=== PATIENT | female | born 1995 | race Caucasian/White ===

== ENCOUNTER 2018-12-31 08:58 | Emergency (ER) | payer OTHER ==
[~2018-12-31] VITALS: Ht 154.9 cm; Wt 67.3 kg
[2018-12-31] MEDS ORDERED: diphenhydrAMINE INJ 50MG/ML VIAL (J1200) IV STA (09:37)
[2018-12-31] MEDS ORDERED: METOCLOPRAMIDE INJ 10MG/2ML VIAL (J2765) IV ONE (09:45)
[2018-12-31] MEDS ORDERED: NS 1,000 ML IV ONE (09:45)
[2018-12-31] MEDS ORDERED: ACETAMINOPHEN 325 MG TAB PO ONE (09:45)
[2018-12-31 11:16] VITALS: BP 117/75
== END 2018-12-31 11:47 | disposition home or self-care (01) ==
LOC: M ED 08:58
DX: O99.89 Other specified diseases and conditions complicating pregnancy, childbirth and the puerperium (principal); G43.909 Migraine, unspecified, not intractable, without status migrainosus; Z79.899 Other long term (current) drug therapy; Z88.0 Allergy status to penicillin
CPT/HCPCS: 96361; 96374; 96375; 99284; J1200; J2765

== ENCOUNTER 2019-01-10 11:18 | Emergency (ER) | payer OTHER ==
[~2019-01-10] VITALS: Ht 154.9 cm; Wt 67.3 kg
[2019-01-10] MEDS ORDERED: FOLI400T PO (11:23)
[2019-01-10] MEDS ORDERED: prenatal (11:23)
--- NOTE | 2019-01-10 13:10 | REP ---
Bilateral lower extremity Duplex Doppler venous ultrasound: Real time compression and duplex Doppler interrogation of the bilateral lower extremity deep venous system is performed. Bilaterally, the common femoral, superficial femoral and popliteal veins are fully compressible with transducer pressure and demonstrate normal spontaneous and phasic flow, without evidence of deep venous thrombosis. Impression: No evidence of deep venous thrombosis of the bilateral lower extremity femoral popliteal venous system. Electronically Signed by Yoandy Oliveros MD 01/10/2019 01:02 P
[2019-01-10 14:26] VITALS: BP 127/79
--- NOTE | 2019-01-10 14:31 | REP ---
CHEST, SINGLE VIEW: There is no evidence of acute infiltrate. No pleural effusion is seen. The heart is normal in size. The mediastinal silhouette is unremarkable. The visualized osseous structures are intact. IMPRESSION: No acute pulmonary disease. Electronically Signed by Yoandy Oliveros MD 01/11/2019 09:24 A
--- NOTE | 2019-01-11 00:21 | ECGEPIP ---
[facility] - ED Test Date: 2019-01-10 Pat Name: KIM LUKE Department: Room: - Gender: Female Ceo And Founder: CT : 1995 Requested By: LUIS DELGADO PA-C. Order Number: [id number] Reading MD: Jemal Guillen Measurements Intervals [place] Rate: 81 P: 47 NH: 171 QRS: 51 QRSD: 93 T: 19 QT: 369 QTc: 429 Interpretive Statements SINUS RHYTHM Comparison tracing not on file Electronically Signed on 01-11-2019 0:20:54 EDT by Jemal Guillen
== END 2019-01-10 14:57 | disposition home or self-care (01) ==
LOC: M ED 11:18
DX: O99.511 Diseases of the respiratory system complicating pregnancy, first trimester (principal); R06.02 Shortness of breath; I47.1 Supraventricular tachycardia; Z88.0 Allergy status to penicillin; Z79.899 Other long term (current) drug therapy; Z3A.11 11 weeks gestation of pregnancy

== ENCOUNTER 2019-03-16 13:16 | Outpatient (CLI) | payer OTHER ==
[~2019-03-16] VITALS: Ht 154.9 cm; Wt 72.5 kg
[~2019-03-16 13:16] MED LIST: FOLI400T PO; prenatal
[2019-03-16 13:34] VITALS: BP 116/74
[2019-03-16] MEDS ORDERED: LACTATED RINGER'S 1000 ML IV STA (13:57)
[2019-03-16 14:21] LABS: BASO # 0.1 10^3/uL (0.0-0.2); BASO % 0.6 % (0.0-1.0); EOS # 0.1 10^3/uL (0.0-0.5); EOS % 0.6 % (0.0-3.0); HEMATOCRIT 36.4 % (36.0-47.0); HEMOGLOBIN 12.6 g/dl (12.0-15.5); LYMPH # 0.4 10^3/uL (1.5-5.0); LYMPH % 3.9 % (24.0-44.0); MEAN CORPUSCULAR HEMOGLOBIN 33.2 pg (27.0-33.0); MEAN CORPUSCULAR HGB CONC 34.6 g/dl (32.0-36.5); MEAN CORPUSCULAR VOLUME 95.8 fl (80.0-96.0); MONO # 0.7 10^3/uL (0.0-0.8); MONO % 6.3 % (0.0-5.0); NEUTROPHILS # 9.3 10^3/uL (1.5-8.5); NEUTROPHILS % 86.5 % (36.0-66.0); PLATELET COUNT, AUTOMATED 223 10^3/uL (150-450); WHITE BLOOD COUNT 10.7 10^3/uL (4.0-10.0)
[2019-03-16] MEDS ORDERED: ACETAMINOPHEN 325 MG TAB PO ONE (15:00)
--- NOTE | 2019-03-16 18:31 | IPNPDOC ---
Obstetrical Progress Note Date of Service Mar 16, 2019 Subjective Late entry. 23yo at 20+3wks sent to triage from [facility] per PCM's request for monitoring. Pt seen to day with PCM for cold symptoms and during her visit he performed doptones and was unable to distinguish between FHR and maternal pulse (130s). Pt has hx of SVT with cardiac ablation x2. Pt was noted to be afebrile in clinic. Upon arrival, pt reports cold symptoms x2 days, highest temp at home 100.2. She reports +FM, denies LOF/VB/CTX. Objective O: Initial temp 101.5, tachycardic with pulse 130s-140s. Normotensive FHR noted to be 180s via TAUS Pt received 1L LR bolus and 975mg of tylenol. After her bolus, pt's pulse stabilized in the 120s (normal for her); FHR now in the 140s, active movement noted on US. Fundus soft by palpation. Temp down to 99.5 Vital Signs Date Time Temp Pulse Resp B/P (MAP) Pulse Ox O2 Delivery O2 Flow Rate FiO2 03/16/19 15:16 99.5 03/16/19 13:45 128 03/16/19 13:34 20 116/74 (88) Tocometer Contractions: No Assessment and Plan Status: Reassuring Additional Comments A: 23yo at 20+3wks, URI with symtpoms; reassuring status after patient treated with hydration and tylenol. P: Pt discharged home with routine precautions. Pt has f/u COLLEEN (Centering) on , but can f/u sooner if symptoms persist or worsen Tylenol PRN for temp >100.4; increase hydration ANA MARIA JACOBSON CNM Mar 16, 2019 18:31
== END 2019-03-16 16:02 | disposition home or self-care (01) ==
LOC: M LDO 13:16
PROVIDERS: ATTEND Registered Nurse Maternal Newborn
DX: O36.8320 Maternal care for abnormalities of the fetal heart rate or rhythm, second trimester, not applicable or unspecified (principal); O99.512 Diseases of the respiratory system complicating pregnancy, second trimester; J06.9 Acute upper respiratory infection, unspecified; Z3A.20 20 weeks gestation of pregnancy
CPT/HCPCS: 76815; 85025; G0378; G0463

== ENCOUNTER 2019-04-17 20:48 | Outpatient (CLI) | payer OTHER ==
[~2019-04-17] VITALS: Ht 154.9 cm; Wt 77.9 kg
[2019-04-17 21:02] VITALS: BP 131/76
--- NOTE | 2019-04-17 21:23 | IPNPDOC ---
Text Note Date of Service The patient was seen on 04/17/19. NOTE patient is a 24 yo @ 25wks gestation presents with concern for left calf pain that started this evening. She report pain worst with ivan calf. Stretching did not completely decrease pain. She had similar pain with her right calf a few days ago and that went away with stretching. denies SOB. denies cramping/vb. +FM. vitals: normal NAD LE: symmetrical, no erythema, no edema. right calf with out tenderness, no palpable cord bilaterally. left calf with tenderness to palpation. FHR: 140's a/p patient is at 25wks gestation with left calf muscle spasm. patient educated on stretching, hydration and balanced diet. educated on s/s of DVT. f/u as previously scheduled. Marly, VITAL SIGNS Vital Sign - Last 24 Hours 04/17/19 21:02 Temp 99.1 Pulse 91 Resp 16 B/P (MAP) 131/76 (94) VS,Fishbone, I+O VS, Fishbone, I+O Vital Signs Date Time Temp Pulse Resp B/P (MAP) Pulse Ox O2 Delivery O2 Flow Rate FiO2 04/17/19 21:02 99.1 91 16 131/76 (94) IRASEMA PARRA DO Apr 17, 2019 21:23
== END 2019-04-17 21:15 | disposition home or self-care (01) ==
LOC: M LDO 20:48
PROVIDERS: ATTEND Obstetrics & Gynecology
DX: O99.89 Other specified diseases and conditions complicating pregnancy, childbirth and the puerperium (principal); M62.831 Muscle spasm of calf; Z3A.25 25 weeks gestation of pregnancy
CPT/HCPCS: 59025; G0378; G0463

== ENCOUNTER 2019-05-24 08:33 | Outpatient (CLI) | payer OTHER ==
[2019-05-24] VITALS (7 sets, daily range): BP systolic 99–123; BP diastolic 56–79
[~2019-05-24] VITALS: Ht 154.9 cm; Wt 81.8 kg
[2019-05-24] MEDS ORDERED: PRENATAL VITAMINS CHEWABLE TABLET PO SCH (09:00)
[2019-05-24] MEDS ORDERED: LR 1,000 ML IV ONE (09:30)
[2019-05-24 09:42] LABS: APPEARANCE, URINE CLEAR (CLEAR); BACTERIA, URINE AUTO 1+ (NEGATIVE); BILIRUBIN, URINE AUTO NEGATIVE (NEGATIVE); BLOOD, URINE BLOOD 2+ (NEGATIVE); COLOR, URINE YELLOW (YELLOW); GLUCOSE, URINE (UA) AUTO NEGATIVE (NEGATIVE); KETONE, URINE AUTO 1+ mg/dL (NEGATIVE); LEUKOCYTE ESTERASE, URINE AUTO TRACE (NEGATIVE); MUCUS, URINE SMALL (NEGATIVE); NITRITE, URINE AUTO NEGATIVE (NEGATIVE); PROTEIN, URINE AUTO NEGATIVE (NEGATIVE); RBC, URINE AUTO 2 /HPF (0-3); SPECIFIC GRAVITY URINE AUTO 1.018 (1.002-1.035); SQUAMOUS EPITHELIAL CELL UR AU 13 /HPF (0-6); UROBILINOGEN, URINE AUTO 0.2 mg/dL (0.0-2.0); WBC, URINE AUTO 8 /HPF (0-3)
[2019-05-24] MEDS ORDERED: BETAMETHASONE SOLUSPAN 6MG/ML INJ 5ML (J0702) IM SCH (10:00)
[2019-05-24] MEDS ORDERED: TUMS500C PO (10:10)
[2019-05-24] MEDS ORDERED: valACYclovir HCL 500 MG TAB PO SCH (11:00)
--- NOTE | 2019-05-24 11:16 | REP ---
Clinical: well-being Comparison: None . Findings: Examination demonstrates a single live intrauterine in cephalic presentation. motion is identified by technologist. Placenta is noted anterior and grade I without evidence for placenta previa or abruption. Amniotic fluid volume is normal. Cervix measures 2.2 cm in length and appears closed. No evidence for nuchal cord. Gestational age by LMP 30 weeks 2 days with MARGIE 07/31/2019 . Gestational age by current measurements 31 weeks 3 days with MARGIE 07/23/2019 . FHR equals 160 beats per minute. Estimated weight 1647 grams ( 54th percentile). Biophysical profile score: 01/26 Amniotic fluid index: 22.7 cm (8.9 - 23.5) Umbilical cord SD ratio: 2.98 Impression: 1. Single live advanced gestation in cephalic presentation demonstrating appropriate interval growth. 2. Biophysical profile score and amniotic fluid volume are normal. 3. Closed cervix measures 2.2 cm in length. Electronically Signed by Eduin Garibay MD 05/24/2019 11:09 A
[2019-05-24 11:40] LABS: HEMATOCRIT 36.2 % (36.0-47.0); HEMOGLOBIN 11.9 g/dl (12.0-15.5); MEAN CORPUSCULAR HEMOGLOBIN 31.6 pg (27.0-33.0); MEAN CORPUSCULAR HGB CONC 32.9 g/dl (32.0-36.5); MEAN CORPUSCULAR VOLUME 96.3 fl (80.0-96.0); PLATELET COUNT, AUTOMATED 249 10^3/uL (150-450); RED BLOOD COUNT 3.76 10^6/uL (4.00-5.40); WHITE BLOOD COUNT 10.6 10^3/uL (4.0-10.0)
[2019-05-24] MEDS ORDERED: LR 1,000 ML IV SCH ×2 (12:00)
[2019-05-24] MEDS ORDERED: MAG Sulf (L&D) 4 GM/100 ML 4 GM in IV 1 EA IV ONE (12:00)
[2019-05-24] MEDS ORDERED: NIFEdipine 10 MG CAP PO ONE (12:00)
[2019-05-24] MEDS ORDERED: CALCIUM GLUCONATE 1,000 MG in D5W MINI-BAG PLUS 100 ML IV PRN (12:00)
[2019-05-24] MEDS ORDERED: PENICILLIN G POTASSIUM IV 5 MU in D5W MINI-BAG PLUS 100 ML IV ONE (12:00)
[2019-05-24 12:04] LABS: CHLAMYDIA DNA AMPLIFICATION NEGATIVE (NEGATIVE); GC DNA AMPLIFICATION NEGATIVE (NEGATIVE)
[2019-05-24] MEDS ORDERED: MAG Sulf (OBGYN) 20GM/500ML 20,000 MG in IV 1 EA IV SCH (12:15)
--- NOTE | 2019-05-24 13:07 | IPNPDOC ---
Obstetrical Progress Note Date of Service May 24, 2019 Subjective Ms. Arora is a 24yo at 30+2wks presents to LND triage with c/o contractions. She reports that she felt constant "bad" hip pain last night, but at 0700 this morning this pain transitioned to intermittent lower abdominal pain/contractions q10 minutes. These became progressively worse and then she noticed bloody mucous x2 this morning. Upon her arrival, she states contractions were q 3-7 minutes apart. She reports +FM, denies LOF. She denies recent intercourse, denies s/sx of UTI/vaginal infection. Medical Hx: SVT with cardiac ablation x2; migraines (under care of neurologist) [employer] Hx: HSV, no outbreaks during OB: G1 Surg Hx: T&A, WTE, cardiac ablation (last in 2010) Objective O: VSS FHR 140s, moderate variability, + accels; deceleration noted immediately after pt repositioned for initial SSE; she was turned to her side and provided O2; she was already receiving LR bolus - FHR recovered CTX present, mild by palpation, q2-4 minutes SSE: bloody mucous present, no active bleeding from cervix; appears to be 1cm dilated SVE: Initial exam at 0938: 1.5/70/-3, soft and posterior; Repeat exam at 1125: 2/70-3 (same examiner) Labs collected: Genprobe, Wet Prep, GBS, UA/UC, CBC/T&S, RPR US: BPP 8/8, 54%tile, Cervix 2.2cm Vital Signs Date Time Temp Pulse Resp B/P (MAP) Pulse Ox O2 Delivery O2 Flow Rate FiO2 05/24/19 12:44 109/63 05/24/19 09:51 88 18 05/24/19 08:50 98.8 97 Sterile Vaginal Examination Postion/Presentation: Cephalic presentation Assessment and Plan Additional Comments A: labor with change in cervix; Reactive NST, currently Category 1 Labs reviewed (see lab reports) US reviewed, cvx 2.2cm P: Consulted with Dr. Membreno; plan to transfer pt to [place] Call to [facility], Dr. Moran will accept pt Continue LR Start Magnesium, Nifedipine, and PCN (see orders) Pt will be transferred via ambulance at this time and will f/u PRN when discharged ANA MARIA JACOBSON CNM May 24, 2019 13:07
[2019-05-24] MEDS ORDERED: NIFEdipine 10 MG CAP PO SCH (14:00)
[2019-05-24] MEDS ORDERED: PENICILLIN G POTASSIUM IV 2.5 MU in IV 1 EA IV SCH (17:00)
== END 2019-05-24 13:25 | disposition other institution (70) ==
LOC: M LDO 08:33
PROVIDERS: ATTEND Registered Nurse Maternal Newborn
DX: O26.893 Other specified pregnancy related conditions, third trimester (principal); M25.551 Pain in right hip; R10.30 Lower abdominal pain, unspecified; O26.853 Spotting complicating pregnancy, third trimester; O60.03 Preterm labor without delivery, third trimester; Z3A.30 30 weeks gestation of pregnancy
CPT/HCPCS: 59025; 76811; 76817; 76819; 76820; 81001; 85027; 86780; 86850; 86900; 86901; 87081; 87086; 87210; 87491; 87591; 96361; 96365; 96372; 96375; G0378; G0463; J0702; J3475

== ENCOUNTER 2021-05-08 17:55 | Emergency (ER) | payer OTHER ==
[~2021-05-08] VITALS: Ht 157.5 cm; Wt 76.6 kg
[~2021-05-08 17:55] MED LIST changes: -FOLI400T PO; +FOLI400T13 PO; +TUMS500C PO
[2021-05-08] MEDS ORDERED: DEPO150I IM (18:08)
[2021-05-08] MEDS ORDERED: EXCETAB33 PO (18:08)
[2021-05-09 02:30] VITALS: BP 112/73
[2021-05-09 02:34] LABS: BASO # 0.1 10^3/uL (0.0-0.2); BASO % 0.7 % (0.0-1.0); EOS # 0.1 10^3/uL (0.0-0.5); EOS % 1.3 % (0.0-3.0); HEMATOCRIT 44.6 % (36.0-47.0); HEMOGLOBIN 14.7 g/dl (12.0-15.5); LYMPH # 2.3 10^3/uL (1.5-5.0); MEAN CORPUSCULAR HEMOGLOBIN 30.4 pg (27.0-33.0); MEAN CORPUSCULAR VOLUME 92.3 fl (80.0-96.0); MONO # 0.5 10^3/uL (0.0-0.8); MONO % 7.1 % (2.0-8.0); NEUTROPHILS # 4.6 10^3/uL (1.5-8.5); NEUTROPHILS % 60.5 % (36.0-66.0); PLATELET COUNT, AUTOMATED 283 10^3/uL (150-450); RED BLOOD COUNT 4.83 10^6/uL (4.00-5.40); WHITE BLOOD COUNT 7.6 10^3/uL (4.0-10.0)
[2021-05-09 02:44] LABS: HCG, SERUM QUALITATIVE NEGATIVE (NEGATIVE)
[2021-05-09 02:57] LABS: ALT/SGPT 35 U/L (12-78); BILIRUBIN,DIRECT 0.2 MG/DL (0.0-0.2); BILIRUBIN,TOTAL 0.6 MG/DL (0.2-1.0); BLOOD UREA NITROGEN 12 MG/DL (7-18); CALCIUM LEVEL 9.6 MG/DL (8.5-10.1); CARBON DIOXIDE LEVEL 26 MEQ/L (21-32); CHLORIDE LEVEL 103 MEQ/L (98-107); CREATININE FOR GFR 0.73 MG/DL (0.55-1.30); GLOMERULAR FILTRATION RATE > 60.0 (>60); GLUCOSE, FASTING 84 MG/DL (70-100); LIPASE 305 U/L (73-393); POTASSIUM SERUM 3.9 MEQ/L (3.5-5.1); SODIUM LEVEL 138 MEQ/L (136-145)
--- OUTSIDE RECORDS SUMMARY | 2021-05-09 03:06 | CCD ---
Author Author [facility] Organization [facility] Address Unknown Phone Unavailable Care Team Providers Care Rn Dialysis Name Role Phone Lupe Coon Rosey Melissa Unavailable [phone] Lupe Coon Rosey Melissa Unavailable [phone] Lupe Coon Rosey Melissa Unavailable [phone] Lupe Coon Rosey Melissa Unavailable [phone] Lupe Coon Rosey Melissa Unavailable [phone] Lupe Coon Rosey Melissa Unavailable [phone] Lupe Coon Rosey Melissa Unavailable [phone] Lupe Coon Rosey Melissa Unavailable [phone] Lupe Coon Rosey Melissa Unavailable [phone] Lupe Coon Rosey Melissa Unavailable [phone] Lupe Coon Rosey Melissa Unavailable [phone] Lupe Coon Rosey Melissa Unavailable [phone] Lupe Coon Rosey Melissa Unavailable [phone] Lupe Coon Rosey Melissa Unavailable [phone] Lupe Coon Rosey Melissa Unavailable [phone] Lupe Coon Rosey Melissa Unavailable [phone] Lupe Coon Rosey Melissa Unavailable [phone] Lupe Coon Rosey Melissa Unavailable [phone] Lupe Coon Unavailable Lupe Coone Unavailable Lupe Coone Unavailable Lupe Coon Unavailable Re-disclosure Warning The records that you are about to access may contain information from federally-assisted alcohol or drug abuse programs. If such information is present, then the following federally mandated warning applies: This information has been disclosed to you from records protected by federal confidentiality rules (42 CFR part 2). The federal rules prohibit you from making any further disclosure of this information unless further disclosure is expressly permitted by the written consent of the person to whom it pertains or as otherwise permitted by 42 CFR part 2. A general authorization for the release of medical or other information is NOT sufficient for this purpose. The Federal rules restrict any use of the information to criminally investigate or prosecute any alcohol or drug abuse patient.The records that you are about to access may contain highly sensitive health information, the redisclosure of which is protected by Article 27-F of the [facility] Public Health law. If you continue you may have access to information: Regarding HIV / AIDS; Provided by facilities licensed or operated by the [facility] Office of Mental Health; or Provided by the [facility] Office for People With Developmental Disabilities. If such information is present, then the following [facility] mandated warning applies: This information has been disclosed to you from confidential records which are protected by state law. State law prohibits you from making any further disclosure of this information without the specific written consent of the person to whom it pertains, or as otherwise permitted by law. Any unauthorized further disclosure in violation of state law may result in a fine or [place] health care facility sentence or both. A general authorization for the release of medical or other information is NOT sufficient authorization for further disc losure. Family History Family Member Name Family Member Gender Family Member Status Date o f Status Description Data Source(s) Unknown Unknown Problem [facility] ([facility]) Encounters Encounter Providers Location Date Indications Data Source(s ) Outpatient Attender: Rosey Coon ED-IMAG 10/31/2020 10:02:00 AM EDT - 10/31/2020 10:03:00 AM EDT RT BREAST MASS [facility] RT BREAST MASS Patient discharged. Medications No Information Insurance Providers Payer name Policy type / Coverage type Policy ID Covered democrat ID Covered democrat's relationship to dangelo Policy Dangelo Plan Information [facility] [id number] 2 [id number] U [id number] Self [id number] U [id number] Self [id number] [address] [employer] [id number] [id number] [employer] [place] O [id number] S [id number] [facility] [id number] 2 [id number] [place] [employer] [id number] Family Dependent [id number] SPOUSE [id number] HEA [id number] SP [id number] Problems, Conditions, and Diagnoses No Information Surgeries/Procedures No Information Results ID Date Data Source [id number] 11/01/2020 10:37:00 AM EDT [facility] Imaging Services Department Imaging Report [address] [place] [address] %(RAD)RES..mtdd.print.filter("line") Name: KIM ENRIQUE : 1995 Age/Sex: 25F Ordering Provider: Rosey Coon DO Med Rec #: [id number] Reg Status: DEP REF Room #: Date of Service: 10/31/20 Report Number: [id number] cc:Rosey Coon DO Send Report To: [id number] US/US Breast Rt Complete Reason for exam: RT BREAST LUMP AT 10 O'CLOCK POSITION Technique: Whole breast ultrasound including evaluation of all four quadrants and the retroareolar region of the breast(s) was performed. FINDINGS: Just under t he skin at the 11 o'clock position, there is a 7 mm x 5 mm cyst noted. That does correspond to the palpable abnormality. No other significant findings otherwise identified. IMPRESSION: Cyst corresponding to the palpable abnormality which is noted just under the skin. OVERALL FINAL ASSESSMENT OF FINDINGS: BIRADS CLASSIFICATION: 2 DESCRIPTION: BENIGN. REPORT SIGNATURE ON FILE Reported By: Simón Martinez MD <Electronically signed by Gianna Martinez MD> 11/01/20 1453 Dictation Date/Time: 10/31/20 1247 Transcribed Date/Time: 11/01/20 1037 Ship Keeper: JENIFER Name Value Range Interpretation Code Description Data Lexi rce(s) Supporting Document(s) ID Date Data Source [id number] 11/01/2020 10:35:00 AM EDT [facility] Imaging Services Department Imaging Report [address] [address] Name: KIM ENRIQUE : 1995 Age/Sex: 25F Ordering Provider: Rosey Coon DO Med Rec #: [id number] Date of Service: 10/31/20 Report Number: [id number] cc: Rosey Coon DO Send Report To: [id number] MAMMO/[place] Diag Rt [place] w [place] CAD Reason for Exam: RT BREAST LUMP AT 10 OCLOCK POSITION Patient States Last CBE: 10-28-20 Is this a follow up exam: N Follow up to: Patient's [place] Lifetime risk of developing breast cancer: PT. TOO YOUNG TOCALCULATE FINDINGS: Heterogeneously dense breast noted. No dominant masses or spiculatedlesions or any signs of malignancy noted. IMPRESSION: No signs of malignancy. OVERALL FINAL ASSESSMENT OF FINDINGS: BIRADS CLASSIFICATION: 1 DESCRIPTION: NEGATIVE. OVERALL FINAL ASSESSMENT OF BREAST COMPOSITION: BIRADS CLASSIFICATION: C DESCRIPTION: The breast(s) are heterogeneously dense, which may obscure small masses. Three dimensional automated whole breast ultrasound (ABVS) is recommended for this patient if it has not already been performed. Please Note: Advise your patient to contact their insurance company prior to scheduling additional testing, as coverage is not guaranteed based on recommendation. Tomosynthesis was performed in addition to standard mammogram views. REPORT SIGNATURE ON FILE 11/01/20 [id number] Reported By: Simón Martinez MD <Electronically signed by Gianna Martinez MD>11/01/20 3322 Dictation Date/Time: 10/31/20 1247 Transcribed Date/Time: 11/01/20 1035 Ship Keeper: JENIFER Name Value Range Interpretation Code Description Data Lexi rce(s) Supporting Document(s) Procedure Social History No Information
[2021-05-09 03:23] LABS: INR 0.93; PROTHROMBIN TIME 12.9 SECONDS (12.7-14.5)
[2021-05-09 03:24] LABS: PARTIAL THROMBOPLASTIN TIME 30.7 SECONDS (25.9-37.0)
[2021-05-09] MEDS ORDERED: MIRA3350 PO (03:41)
[2021-05-09] MEDS ORDERED: PROC2.5C TOP (03:45)
== END 2021-05-09 04:07 | disposition home or self-care (01) ==
LOC: M ED 17:55
DX: K64.8 Other hemorrhoids (principal)

== ENCOUNTER 2021-07-31 13:35 | Emergency (ER) | payer OTHER ==
[~2021-07-31] VITALS: Ht 154.9 cm; Wt 76.3 kg
[~2021-07-31 13:35] MED LIST changes: +DEPO150I IM; +EXCETAB33 PO; +MIRA3350 PO; +PROC2.5C TOP
[2021-07-31] MEDS ORDERED: KETOROLAC 30 MG/ML 1ML VIAL IM ONE (20:20)
[2021-07-31] MEDS ORDERED: ONDA4TAB6 PO (20:43)
[2021-07-31 20:55] VITALS: BP 135/83
== END 2021-07-31 21:03 | disposition home or self-care (01) ==
LOC: M ED 13:35
DX: G43.909 Migraine, unspecified, not intractable, without status migrainosus (principal); K58.9 Irritable bowel syndrome, unspecified; I47.1 Supraventricular tachycardia; Z88.1 Allergy status to other antibiotic agents
CPT/HCPCS: 96372; 99283; J1885